=== PATIENT | male | born 1955 | race Caucasian/White ===

== ENCOUNTER → 2016-11-03 | Outpatient (CLI) | payer MEDICARE ==
[2016-11-03 16:27] LABS: Blood Urea Nitrogen 17 mg/dL (9-20); Non-African American GFR(MDRD) >60 (>60 ml/min/1.73 sqM)
--- NOTE | 2016-11-03 18:05 | CT ---
EXAMINATION TYPE: CT angio head neck DATE OF EXAM: 11/03/2016 5:35 PM COMPARISON: NONE HISTORY: headache, TIA symptoms CT DLP: 2807.4 total mGycm Automated exposure control for dose reduction was used. TECHNIQUE: Performed with IV Contrast, patient injected with 65 mL of Omnipaque 350. There are 3-D post processed images.. FINDINGS: The noncontrast images show fairly normal ventricles and sulci. There is no mass effect nor midline s hift. There is no sign of intracranial hemorrhage. There is normal branching pattern of the great vessels on the aortic arch. There is bilateral arteria l flow in the vertebral arteries. There is patency of the common internal and external carotid arteri es. There is mild plaque at the carotid artery bifurcations but no significant narrowing of the lumen . There is narrowing at the origin of the left common carotid artery. There is arterial flow in the vertebrobasilar artery system. Basilar artery fills mostly from the lef t side. There is arterial flow in the anterior middle and posterior cerebral arteries. There is no sign of an eurysm or neovascularity. I see no sign of hemodynamically significant stenosis. There is normal cont rast opacification of the venous sinuses. There is bilateral patency of the posterior communicating a rteries. IMPRESSION: NEGATIVE CT ANGIOGRAM OF THE BRAIN. MINIMAL CALCIFICATION AT THE CAROTID ARTERY BIFURCATIONS WITH NARROWING OF LESS THAN 10% OF THE INTER NAL CAROTID ARTERIES. THERE IS APPROXIMATE 50% NARROWING AT THE ORIGIN OF THE LEFT COMMON CAROTID ART CARMENZA ON THE AORTIC ARCH.
== END ==
LOC: RADCTMAIN 15:53
PROVIDERS: ATTEND Psychiatry & Neurology Neurology
DX: I65.22 Occlusion and stenosis of left carotid artery (principal); G45.9 Transient cerebral ischemic attack, unspecified
CPT/HCPCS: 82565; 84520; 70496; 70498; 36415; Q9967

== ENCOUNTER 2017-02-02 19:50 | Inpatient (IN) | payer MEDICARE ==
[2017-02-02 20:01] LABS: Glucose,Whole Blood 101 mg/dL (75-99)
[2017-02-02] MEDS ORDERED: SODIUM CHLORIDE 0.9% 1,000 ML IV STA ×2 (20:14)
[2017-02-02] MEDS ORDERED: ACETAMINOPHEN TAB 500 MG TAB PO STA (20:14)
[2017-02-02] MEDS ORDERED: KETOROLAC 30 MG/ML 1 ML VIAL IVP STA (20:15)
[2017-02-02] MEDS ORDERED: LEVOFLOXACIN 750MG-D5W PMX 750 MG in DEXTROSE/WATER 1 150ML.BAG IVPB STA (20:15)
[2017-02-02] MEDS ORDERED: IPRATROPIUM-ALBUTEROL 3 ML NEB INHALATION STA (20:16)
[2017-02-02] MEDS ORDERED: ONDANSETRON 4 MG/2 ML VIAL IVP STA (20:16)
[2017-02-02 20:31] LABS: Anisocytosis Slight; Basophils # (A) 0.1 k/uL (0-0.2); Basophils % (A) 1 %; CH 34.1; Eosinophils % (A) 0 %; HCT 30.2 % (39.0-53.0); HDW 3.06; HGB 10.3 gm/dL (13.0-17.5); Luc # (Auto) 0.45; Luc % (Auto) 4; Lymphocytes # (A) 0.7 k/uL (1.0-4.8); Lymphocytes % (A) 6 %; MCH 33.3 pg (25.0-35.0); MCHC 34.2 g/dL (31.0-37.0); MCV 97.5 fL (80.0-100.0); Monocytes # (A) 1.1 k/uL (0-1.0); Monocytes % (A) 9 %; Neutrophils # (A) 9.8 k/uL (1.3-7.7); Neutrophils % (A) 81 %; RBC 3.09 m/uL (4.30-5.90); RDW 18.2 % (11.5-15.5); WBC (Perox) 12.04
[2017-02-02 20:44] LABS: ALT 31 U/L (21-72); AST 26 U/L (17-59); Alkaline Phosphatase 56 U/L (38-126); Amylase <30 U/L (30-110); Anion Gap 9 mmol/L; Blood Urea Nitrogen 17 mg/dL (9-20); Calcium 8.5 mg/dL (8.4-10.2); Carbon Dioxide 23 mmol/L (22-30); Chloride 101 mmol/L (98-107); Glucose 92 mg/dL (74-99); Non-African American GFR(MDRD) >60 (>60 ml/min/1.73 sqM); Potassium 3.7 mmol/L (3.5-5.1); Sodium 133 mmol/L (137-145); Total Bilirubin 0.3 mg/dL (0.2-1.3)
[2017-02-02 20:48] LABS: Appearance,Urine Clear (Clear); Bilirubin,Urine Negative (Negative); Glucose,Urine (UA) Negative (Negative); Ketones,Urine Negative (Negative); Leukocyte Esterase,Urine Negative (Negative); Mucus,Urine Rare /hpf; Nitrite,Urine Negative (Negative); Particle Count 4126; Protein,Urine 3+ (Negative); RBC,Urine 20 /hpf (0-5); Specific Gravity,Urine 1.023 (1.001-1.035); UA Billing (MACRO vs. MICRO) MICRO; WBC,Urine 1 /hpf (0-5)
[2017-02-02] MEDS ORDERED: PNEUMONIA PROTOCOL UTILIZED 1 EACH MISC PO PRN (21:23)
[2017-02-02] MEDS ORDERED: IPRATROPIUM-ALBUTEROL 3 ML NEB INHALATION PRN ×2 (21:23→23:52)
[2017-02-02] MEDS ORDERED: PIPERACILLIN-TAZOBACTAM 3.375 GM in DEXTROSE/WATER 1 50ML.BAG IVPB STA (21:23)
--- NOTE | 2017-02-02 21:23 | ED ---
Fever HPI - General Chief Complaint: Fever Stated Complaint: low sugar Time Seen by Provider: 02/02/17 20:06 Source: patient, family Mode of arrival: wheelchair Limitations: no limitations - History of Present Illness Initial Comments: This 61-year-old white male presents with the complaint of a fever. This is been going on for the past 3 days. He has felt very weak and has had myalgias. His temperature in the ER as 104. He's had a cough without production. He has felt short of breath at times as well. He has had some nausea. He is a diabetic and his blood sugars have fluctuated significantly and he was hypoglycemic earlier. He also complains of some pain in his midepigastric region of his abdomen. He has had decreased oral intake. - Related Data Home Medications Medication Instructions Recorded Confirmed Aspirin EC [Ecotrin Low Dose] 81 mg PO DAILY 02/04/16 02/02/17 Butalb/Acetaminophen/Caffeine 1 tab PO BID PRN 02/04/16 02/02/17 [[id number] 50-325-40] Clopidogrel Bisulfate [Clopidogrel] 75 mg PO DAILY 02/04/16 02/02/17 Gabapentin [Gabapentin] 800 mg PO TID 02/04/16 02/02/17 Insulin Detemir [Levemir Flextouch] 30 units SQ DAILY@1700 02/04/16 02/02/17 Metoprolol Succinate [Toprol XL] 25 mg PO BID 02/04/16 02/02/17 Pioglitazone HCl [Pioglitazone HCl] 45 mg PO DAILY 02/04/16 02/02/17 Simvastatin [Zocor] 40 mg PO HS 02/04/16 02/02/17 glyBURIDE/METFORMIN HCL 1 tab PO BID 02/04/16 02/02/17 [glyBURIDE/METFORMIN HCL 5-500 mg] oxyCODONE-APAP 10-325MG [Percocet 1 tab PO TID PRN 02/04/16 02/02/17 10-325 mg] Cyclobenzaprine [Flexeril] 10 mg PO TID 02/02/17 02/02/17 Vitamin D3(Unknown Dose) 1 tab PO BID 02/02/17 02/02/17 Allergies Allergy/AdvReac Type Severity Reaction Status Date / Time codeine AdvReac Nausea & Verified 02/02/17 20:25 Vomiting Review of Systems ROS Statement: Those systems with pertinent positive or pertinent negative responses have been documented in the HPI. ROS Other: All systems not noted in ROS Statement are negative. Past Medical History Past Medical History: CVA/TIA, Diabetes Mellitus, Hyperlipidemia, Hypertension, Myocardial Infarction ([place]) Additional Past Medical History / Comment(s): back and neck pain History of Any Multi-Drug Resistant Organisms: None Reported Past Surgical History: Heart Catheterization With Stent, Orthopedic Surgery Past Psychological History: No Psychological Hx Reported Smoking Status: Current every day smoker Past Alcohol Use History: None Reported Past Drug Use History: None Reported General Exam - General Exam Comments Initial Comments: GENERAL: The patient is well nourished and mildly dehydrated. VITAL SIGNS: Heart rate, blood pressure, respiratory rate reviewed as recorded in nurse's notes. EYES: Pupils are round and reactive. Extraocular movements are intact. No conjunctival / lid redness or swelling. ENT: No external evidence of injury, swelling, or ecchymosis. Airway is patent. Throat is clear. NECK: Nontender. No swelling or evidence of injury. No subcutaneous emphysema. Trachea is midline. No thyroid mass. HEART: Regular rate and rhythm. Good peripheral pulses. LUNGS/CHEST: There is occasional rhonchi bilaterally. No ecchymosis, subcutaneous emphysema, or tenderness. ABDOMEN: Abdomen soft without tenderness. No palpable masses or organomegaly. No peritoneal signs. No abdominal wall swelling or ecchymosis. EXTREMITIES: No extremity tenderness. Normal muscle tone and function. No thoracolumbar tenderness. NEUROLOGIC: Sensation is grossly intact. Cranial nerve exam reveals face is symmetrical, tongue is midline, speech is clear. SKIN: No abrasions or ecchymosis is noted. No induration or masses noted. PSYCHIATRIC: Alert and oriented. Appropriate behavior and judgment. Limitations: no limitations Course Vital Signs 02/02/17 02/02/17 02/02/17 19:51 20:46 20:52 Temperature 104.6 F H Pulse Rate 108 H 123 H 91 Respiratory 22 18 Rate Blood Pressure 139/59 157/66 O2 Sat by Pulse 91 L 99 Oximetry 02/02/17 21:05 Temperature Pulse Rate 100 Respiratory Rate Blood Pressure O2 Sat by Pulse Oximetry Medical Decision Making - Medical Decision Making The patient was seen and examined. All diagnostics were reviewed. EKG shows a normal sinus rhythm at a rate of 97. No acute ST-T wave changes noted. The MD interval is 160, QRS duration is 96, and QTc interval is 406. The patient's pulse ox is low at 88%. He receives a DuoNeb breathing treatment. Antibiotics are started. He receives Toradol and Tylenol for his fever. Further care will be passed off to oncoming shift. His white blood cell count is slightly elevated. His hemoglobin is slightly low as well. Remainder of labs are reviewed. The acute abdominal series does not show any acute processes. The chest x-ray shows a likely infiltrate in the bilateral upper lobes and left lower lobe. Is felt that he does have community-acquired pneumonia and will be admitted. Case will be discussed with internal medicine shortly. - Lab Data Result diagrams: 02/02/17 20:10 02/02/17 20:10 Lab Results 02/02/17 02/02/17 02/02/17 Range/Units 20:00 20:10 20:10 WBC 12.0 H (3.8-10.6) k/uL RBC 3.09 L (4.30-5.90) m/uL Hgb 10.3 L (13.0-17.5) gm/dL Hct 30.2 L (39.0-53.0) % MCV 97.5 (80.0-100.0) fL MCH 33.3 (25.0-35.0) pg MCHC 34.2 (31.0-37.0) g/dL RDW 18.2 H (11.5-15.5) % Plt Count 221 (150-450) k/uL Neutrophils % 81 % Lymphocytes % 6 % Monocytes % 9 % Eosinophils % 0 % Basophils % 1 % Neutrophils # 9.8 H (1.3-7.7) k/uL Lymphocytes # 0.7 L (1.0-4.8) k/uL Monocytes # 1.1 H (0-1.0) k/uL Eosinophils # 0.0 (0-0.7) k/uL Basophils # 0.1 (0-0.2) k/uL Anisocytosis Slight Sodium 133 L (137-145) mmol/L Potassium 3.7 (3.5-5.1) mmol/L Chloride 101 (98-107) mmol/L Carbon Dioxide 23 (22-30) mmol/L Anion Gap 9 mmol/L BUN 17 (9-20) mg/dL Creatinine 0.90 (0.66-1.25) mg/dL Est GFR (MDRD) Af Amer >60 (>60 ml/min/1.73 sqM) Est GFR (MDRD) Non-Af >60 (>60 ml/min/1.73 sqM) Glucose 92 (74-99) mg/dL POC Glucose (mg/dL) 101 H (75-99) mg/dL POC Glu Molding Technician ID Katerin Jordan Plasma Lactic Acid Dann (0.7-2.0) mmol/L Calcium 8.5 (8.4-10.2) mg/dL Total Bilirubin 0.3 (0.2-1.3) mg/dL AST 26 (17-59) U/L ALT 31 (21-72) U/L Alkaline Phosphatase 56 (38-126) U/L Total Protein 6.0 L (6.3-8.2) g/dL Albumin 3.5 (3.5-5.0) g/dL Amylase <30 L (30-110) U/L Lipase <10 L (23-300) U/L Urine Color Urine Appearance (Clear) Urine pH (5.0-8.0) Ur Specific [place] (1.001-1.035) Urine Protein (Negative) Urine Glucose (UA) (Negative) Urine Ketones (Negative) Urine Blood (Negative) Urine Nitrite (Negative) Urine Bilirubin (Negative) Urine Urobilinogen (<2.0) mg/dL Ur Leukocyte Esterase (Negative) Urine RBC (0-5) /hpf Urine WBC (0-5) /hpf Urine Mucus (None) /hpf 02/02/17 02/02/17 Range/Units 20:10 20:25 WBC (3.8-10.6) k/uL RBC (4.30-5.90) m/uL Hgb (13.0-17.5) gm/dL Hct (39.0-53.0) % MCV (80.0-100.0) fL MCH (25.0-35.0) pg MCHC (31.0-37.0) g/dL RDW (11.5-15.5) % Plt Count (150-450) k/uL Neutrophils % % Lymphocytes % % Monocytes % % Eosinophils % % Basophils % % Neutrophils # (1.3-7.7) k/uL Lymphocytes # (1.0-4.8) k/uL Monocytes # (0-1.0) k/uL Eosinophils # (0-0.7) k/uL Basophils # (0-0.2) k/uL Anisocytosis Sodium (137-145) mmol/L Potassium (3.5-5.1) mmol/L Chloride (98-107) mmol/L Carbon Dioxide (22-30) mmol/L Anion Gap mmol/L BUN (9-20) mg/dL Creatinine (0.66-1.25) mg/dL Est GFR (MDRD) Af Amer (>60 ml/min/1.73 sqM) Est GFR (MDRD) Non-Af (>60 ml/min/1.73 sqM) Glucose (74-99) mg/dL POC Glucose (mg/dL) (75-99) mg/dL POC Glu Molding Technician ID Plasma Lactic Acid Dann 1.4 (0.7-2.0) mmol/L Calcium (8.4-10.2) mg/dL Total Bilirubin (0.2-1.3) mg/dL AST (17-59) U/L ALT (21-72) U/L Alkaline Phosphatase (38-126) U/L Total Protein (6.3-8.2) g/dL Albumin (3.5-5.0) g/dL Amylase (30-110) U/L Lipase (23-300) U/L Urine Color Yellow Urine Appearance Clear (Clear) Urine pH 6.0 (5.0-8.0) Ur Specific [place] 1.023 (1.001-1.035) Urine Protein 3+ H (Negative) Urine Glucose (UA) Negative (Negative) Urine Ketones Negative (Negative) Urine Blood Moderate H (Negative) Urine Nitrite Negative (Negative) Urine Bilirubin Negative (Negative) Urine Urobilinogen 2.0 (<2.0) mg/dL Ur Leukocyte Esterase Negative (Negative) Urine RBC 20 H (0-5) /hpf Urine WBC 1 (0-5) /hpf Urine Mucus Rare H (None) /hpf Disposition Clinical Impression: Hyperpyrexia, Community acquired pneumonia, Anemia, Abdominal pain, Weakness, Acute respiratory failure Disposition: ADMITTED IP TO THIS HOSP Condition: Fair Referrals: Vickie Lozano MD [Primary Care Provider] - 1-2 days Time of Disposition: 21:28 Decision Date: 02/02/17 Decision Time: 21:28
--- NOTE | 2017-02-02 21:29 | XR ---
EXAMINATION TYPE: XR chest 2V DATE OF EXAM: 02/02/2017 COMPARISON: 08/11/2009 HISTORY: Dizziness TECHNIQUE: Frontal and lateral views of the chest are obtained. FINDINGS: There is suggestion of a new infiltrate above the left pulmonary hilum compared to last exa m. There is poor inspiration. There is no pleural effusion. There is no heart failure. IMPRESSION: Probable new left upper lobe infiltrate compared to old exam. No heart failure.
[2017-02-02] MEDS ORDERED: METOCLOPRAMIDE 5 MG/ML 2 ML VIAL IVP STA (21:30)
--- NOTE | 2017-02-02 21:30 | XR ---
EXAMINATION TYPE: XR abdomen 2V DATE OF EXAM: 02/02/2017 COMPARISON: NONE HISTORY: Dizziness TECHNIQUE: 3 views FINDINGS: There is no sign of intestinal obstruction or pneumoperitoneum. Fecal pattern is normal. Th ere is no sign of a mass. There are no pathologic calcifications over the kidneys. There is mild subs egmental atelectasis at the left lung base. IMPRESSION: Subsegmental atelectasis. Nonacute abdomen.
[2017-02-02] MEDS ORDERED: HYDROmorphone 1 MG/ML 1 ML SYRINGE IVP PRN (21:31)
[2017-02-02 22:34] LABS: Glucose,Whole Blood 183 mg/dL (75-99)
[2017-02-02] MEDS ORDERED: INSULIN DETEMIR 100 UNIT/ML 10 ML VIAL SQ SCH (23:48)
[2017-02-03] MEDS: oxyCODONE-APAP 10-325MG 1 EACH TAB PO PRN ×3 (01:06→21:40)
[2017-02-03] MEDS: metFORMIN 500 MG TAB PO SCH ×2 (01:06→08:14)
[2017-02-03] MEDS: CYCLOBENZAPRINE 10 MG TAB PO SCH ×4 (01:06→21:36)
[2017-02-03] MEDS: GABAPENTIN 400 MG CAP PO SCH ×4 (01:06→21:36)
[2017-02-03] MEDS: METOPROLOL TARTRATE 25 MG TAB PO SCH ×3 (01:06→21:36)
[2017-02-03] MEDS: ATORVASTATIN 20 MG TAB PO SCH ×2 (01:06→21:36)
[2017-02-03] MEDS: CHOLECALCIFEROL 400 UNIT TAB PO SCH ×3 (01:06→21:36)
[2017-02-03] MEDS: IPRATROPIUM-ALBUTEROL 3 ML NEB INHALATION SCH ×4 (07:21→19:39)
[2017-02-03 07:29] LABS: Glucose,Whole Blood 60 mg/dL (75-99)
[2017-02-03] MEDS ORDERED: PIPERACILLIN-TAZOBACTAM 3.375 GM in DEXTROSE/WATER 1 50ML.BAG IVPB SCH (08:00)
[2017-02-03 08:01] LABS: Glucose,Whole Blood 61 mg/dL (75-99)
[2017-02-03 08:15] LABS: Glucose,Whole Blood 76 mg/dL (75-99)
[2017-02-03] MEDS: CLOPIDOGREL 75 MG TAB PO SCH (08:15)
[2017-02-03] MEDS: ASPIRIN 81 MG CHEW PO SCH (08:15)
[2017-02-03] MEDS: INSULIN LISPRO (humaLOG) 300 UNIT/3 ML VIAL SQ SCH ×4 (08:15→21:17)
[2017-02-03] MEDS ORDERED: glipiZIDE 5 MG TAB PO SCH (09:00)
[2017-02-03] MEDS ORDERED: PIOGLITAZONE 45 MG TAB PO SCH (09:00)
[2017-02-03] MEDS ORDERED: POLYETHYLENE GLYCOL 3350 17 GM POWD.PACK PO PRN (11:16)
--- NOTE | 2017-02-03 11:19 | P.HPIM ---
History of Present Illness This 61-year-old male presents with the complaint of a fever cough unable to bring up anything generalized weakness for the past 3 days. He has felt very weak and has had myalgias. His temperature in the ER as 104. He's had a cough without production. He has felt short of breath at times as well along with nausea and vomiting. He has had decreased oral intake. Patient is found to have right upper lobe pneumonia, patient was started on Zosyn and levofloxacin which were dyspnea and patient was started on Ceftin and azithromycin as there is no need for healthcare associated pneumonia treatment. Patient has come in today quite pneumonia. Patient is a smoker Review of Systems REVIEW OF SYSTEMS: CONSTITUTIONAL: No fever, no malaise, no fatigue. HEENT: No recent visual problems or hearing problems. Denied any sore throat. CARDIOVASCULAR: No chest pain, orthopnea, PND, no palpitations, no syncope. PULMONARY:, no hemoptysis. GASTROINTESTINAL: No diarrhea no abdominal pain. Normoactive bowel sounds. NEUROLOGICAL: No headaches, no weakness, no numbness. HEMATOLOGICAL: Denies any bleeding or petechiae. GENITOURINARY: Denies any burning micturition, frequency, or urgency. MUSCULOSKELETAL/RHEUMATOLOGICAL: Denies any joint pain, swelling, or any muscle pain. ENDOCRINE: Denies any polyuria or polydipsia. The rest of the 14-point review of systems is negative. Past Medical History Past Medical History: CVA/TIA, Diabetes Mellitus, Hyperlipidemia, Hypertension, Myocardial Infarction ([place]) Additional Past Medical History / Comment(s): chronic bronchitis; back and neck pain Last Myocardial Infarction Date:: 2009 History of Any Multi-Drug Resistant Organisms: None Reported Past Surgical History: Heart Catheterization With Stent, Hernia Repair, Orthopedic Surgery Additional Past Surgical History / Comment(s): abdominal superior vena cava stent; right rotor cuff sx; left knee sx; oleg wrist sx; left ankle sx; ingunial hernia repair Date of Last Stent Placement:: 2011 Past Psychological History: No Psychological Hx Reported Smoking Status: Current every day smoker Past Alcohol Use History: None Reported Past Drug Use History: None Reported - Past Family History Son(s) Family Medical History: Hyperlipidemia, Hypertension Additional Family Medical History / Comment(s): bad back; Daughter(s) Family Medical History: Diabetes Mellitus Additional Family Medical History / Comment(s): ddd-lumbar; scolosis; spina bifada Medications and Allergies Home Medications Medication Instructions Recorded Confirmed Type Aspirin EC [Ecotrin Low Dose] 81 mg PO DAILY 02/04/16 02/02/17 History Butalb/Acetaminophen/Caffeine 1 tab PO BID PRN 02/04/16 02/02/17 History [[id number] 50-325-40] Clopidogrel Bisulfate [Clopidogrel] 75 mg PO DAILY 02/04/16 02/02/17 History Gabapentin [Gabapentin] 800 mg PO TID 02/04/16 02/02/17 History Insulin Detemir [Levemir Flextouch] 24 units SQ DAILY@1700 02/04/16 02/02/17 History Metoprolol Succinate [Toprol XL] 25 mg PO BID 02/04/16 02/02/17 History Pioglitazone HCl [Pioglitazone HCl] 45 mg PO DAILY 02/04/16 02/02/17 History Simvastatin [Zocor] 40 mg PO HS 02/04/16 02/02/17 History glyBURIDE/METFORMIN HCL 1 tab PO BID 02/04/16 02/02/17 History [glyBURIDE/METFORMIN HCL 5-500 mg] oxyCODONE-APAP 10-325MG [Percocet 1 tab PO TID PRN 02/04/16 02/02/17 History 10-325 mg] Cyclobenzaprine [Flexeril] 10 mg PO TID 02/02/17 02/02/17 History Vitamin D3(Unknown Dose) 1 tab PO BID 02/02/17 02/02/17 History Allergies Allergy/AdvReac Type Severity Reaction Status Date / Time codeine AdvReac Nausea & Verified 02/02/17 20:25 Vomiting Physical Exam Vitals: Vital Signs Temp Pulse Pulse Resp BP BP Pulse Ox 02/03/17 07:37 100 02/03/17 07:24 96 17 02/03/17 07:00 99.6 F 102 H 16 168/69 96 02/02/17 22:20 99.0 F 98 17 132/60 92 L 02/02/17 22:08 101.6 F H 95 18 140/63 98 02/02/17 21:31 102.8 F H 104 H 18 128/57 96 02/02/17 21:05 100 02/02/17 20:52 91 18 157/66 99 02/02/17 20:46 123 H 02/02/17 19:51 104.6 F H 108 H 22 139/59 91 L Intake and Output 02/02/17 02/03/17 02/03/17 22:59 06:59 14:59 Intake Total 1000 Balance 1000 Intake: Amount of Fluid Infused ( 1000 ml) Other: Voiding Method Toilet Toilet Weight 95 kg PHYSICAL EXAMINATION: GENERAL: The patient is alert and oriented x3, not in any acute distress. Well developed, well nourished. HEENT: Pupils are round and equally reacting to light. EOMI. No scleral icterus. No conjunctival pallor. Normocephalic, atraumatic. No pharyngeal erythema. No thyromegaly. CARDIOVASCULAR: S1 and S2 present. No murmurs, rubs, or gallops. PULMONARY: Chest is clear to auscultation, no wheezing or crackles. Does have bronchophony and egophony in the right upper lobes and patient does have decreased breath sounds bilaterally. ABDOMEN: Soft, nontender, nondistended, normoactive bowel sounds. No palpable organomegaly. MUSCULOSKELETAL: No joint swelling or deformity. EXTREMITIES: No cyanosis, clubbing, or pedal edema. NEUROLOGICAL: Gross neurological examination did not reveal any focal deficits. SKIN: No rashes. Results CBC & Chem 7: 02/02/17 20:10 02/02/17 20:10 Labs: Abnormal Lab Results - Last 24 Hours (Table) 02/02/17 02/02/17 02/02/17 Range/Units 20:00 20:10 20:10 WBC 12.0 H (3.8-10.6) k/uL RBC 3.09 L (4.30-5.90) m/uL Hgb 10.3 L (13.0-17.5) gm/dL Hct 30.2 L (39.0-53.0) % RDW 18.2 H (11.5-15.5) % Neutrophils # 9.8 H (1.3-7.7) k/uL Lymphocytes # 0.7 L (1.0-4.8) k/uL Monocytes # 1.1 H (0-1.0) k/uL Sodium 133 L (137-145) mmol/L POC Glucose (mg/dL) 101 H (75-99) mg/dL Total Protein 6.0 L (6.3-8.2) g/dL Amylase <30 L (30-110) U/L Lipase <10 L (23-300) U/L Urine Protein (Negative) Urine Blood (Negative) Urine RBC (0-5) /hpf Urine Mucus (None) /hpf 02/02/17 02/02/17 02/03/17 Range/Units 20:25 22:22 07:23 WBC (3.8-10.6) k/uL RBC (4.30-5.90) m/uL Hgb (13.0-17.5) gm/dL Hct (39.0-53.0) % RDW (11.5-15.5) % Neutrophils # (1.3-7.7) k/uL Lymphocytes # (1.0-4.8) k/uL Monocytes # (0-1.0) k/uL Sodium (137-145) mmol/L POC Glucose (mg/dL) 183 H 60 L (75-99) mg/dL Total Protein (6.3-8.2) g/dL Amylase (30-110) U/L Lipase (23-300) U/L Urine Protein 3+ H (Negative) Urine Blood Moderate H (Negative) Urine RBC 20 H (0-5) /hpf Urine Mucus Rare H (None) /hpf 02/03/17 Range/Units 07:41 WBC (3.8-10.6) k/uL RBC (4.30-5.90) m/uL Hgb (13.0-17.5) gm/dL Hct (39.0-53.0) % RDW (11.5-15.5) % Neutrophils # (1.3-7.7) k/uL Lymphocytes # (1.0-4.8) k/uL Monocytes # (0-1.0) k/uL Sodium (137-145) mmol/L POC Glucose (mg/dL) 61 L (75-99) mg/dL Total Protein (6.3-8.2) g/dL Amylase (30-110) U/L Lipase (23-300) U/L Urine Protein (Negative) Urine Blood (Negative) Urine RBC (0-5) /hpf Urine Mucus (None) /hpf Microbiology - Last 24 Hours (Table) 02/02/17 20:25 Urine Culture - Preliminary Urine,Voided Thrombosis Risk Factor Assmnt - Choose All That Apply Any of the Below Risk Factors Present?: Yes Each Factor Represents 1 point: Age 41-60 years, Obesity (BMI >25) Other Risk Factors: No Other congenital or acquired thrombophilia - If yes, enter type in comment: No Thrombosis Risk Factor Assessment Total Risk Factor Score: 2 Thrombosis Risk Factor Assessment Level: Low Risk Assessment and Plan Plan: 1 sepsis secondary to come in today quite pneumonia most probably pneumococcal pneumonia: Patient will be started on Rocephin and azithromycin. Sputum cultures and blood cultures will be obtained. 2 hypovolemic hyponatremia: Expected to improve with IV fluids. #3 type 2 diabetes mellitus: Continue his home regimen monitor blood sugars titration as per the blood sugars. #4 hypertension #5 hyperlipidemia #6 coronary artery disease #7 cerebrovascular accident in the past For above-mentioned chronic medical problems or go ahead and continue his home medications. Repeat Avapro lites and CBC tomorrow.
[2017-02-03 11:35] LABS: Glucose,Whole Blood 52 mg/dL (75-99)
[2017-02-03 11:50] LABS: Glucose,Whole Blood 44 mg/dL (75-99)
[2017-02-03 11:52] LABS: Glucose,Whole Blood 42 mg/dL (75-99)
[2017-02-03] MEDS: HEPARIN SODIUM,PORCINE 5,000 UNIT/ML 1 ML VIAL SQ SCH ×3 (11:52→23:35)
[2017-02-03] MEDS: cefTRIAXone 2,000 MG in SODIUM CHLORIDE 0.9% 100 ML IVPB SCH (11:53)
[2017-02-03] MEDS: AZITHROMYCIN 500 MG TAB PO SCH (11:53)
[2017-02-03 12:14] LABS: Hemoglobin A1C 6.4 % (4.2-6.1)
[2017-02-03 12:22] LABS: Glucose,Whole Blood 51 mg/dL (75-99)
[2017-02-03 12:27] LABS: Glucose,Whole Blood 81 mg/dL (75-99)
--- NOTE | 2017-02-03 13:51 | XR ---
EXAMINATION TYPE: XR chest 2V DATE OF EXAM: 02/03/2017 COMPARISON: 02/02/2017 INDICATION: Pneumonia TECHNIQUE: Frontal and lateral views of the chest are obtained. FINDINGS: The heart size is normal. The pulmonary vasculature is normal. Small infiltrate is in the left suprahilar region above the level of the aortic arch. This may be gabriele ewhat projectional with a change from prior study. Atelectasis should be considered. IMPRESSION: 1. Persistent left upper lobe infiltrate. Correlate for pneumonia and atelectasis.
[2017-02-03] MEDS: ACETAMINOPHEN TAB 500 MG TAB PO PRN (14:55)
[2017-02-03] MEDS: DEXTROSE 5%-0.9% NACL 1,000 ML IV SCH (15:30)
[2017-02-03] MEDS: ONDANSETRON 4 MG/2 ML VIAL IVP PRN (15:36)
[2017-02-03 15:49] LABS: Glucose,Whole Blood 47 mg/dL (75-99)
[2017-02-03 16:26] LABS: Glucose,Whole Blood 64 mg/dL (75-99)
[2017-02-03 16:26] LABS: Glucose,Whole Blood 69 mg/dL (75-99)
[2017-02-03 17:09] LABS: Glucose,Whole Blood 85 mg/dL (75-99)
[2017-02-03 20:50] LABS: Glucose,Whole Blood 91 mg/dL (75-99)
[2017-02-03] MEDS ORDERED: LEVOFLOXACIN 750MG-D5W PMX 750 MG in DEXTROSE/WATER 1 150ML.BAG IVPB SCH (21:00)
[2017-02-03] MEDS: FAMOTIDINE 20 MG TAB PO SCH (21:36)
[2017-02-04 02:17] LABS: Glucose,Whole Blood 114 mg/dL (75-99)
[2017-02-04] MEDS: DEXTROSE 5%-0.9% NACL 1,000 ML IV SCH ×3 (04:14→23:28)
[2017-02-04 07:41] LABS: Glucose,Whole Blood 163 mg/dL (75-99)
[2017-02-04] MEDS: ONDANSETRON 4 MG/2 ML VIAL IVP PRN (07:43)
[2017-02-04 07:51] LABS: Anisocytosis Slight; CH 33.6; CHCM 33.8; HCT 26.5 % (39.0-53.0); HDW 3.08; HGB 8.9 gm/dL (13.0-17.5); MCH 33.3 pg (25.0-35.0); MCHC 33.5 g/dL (31.0-37.0); MCV 99.4 fL (80.0-100.0); Macrocytosis Slight; Mean Platelet Volume 8.9; RBC 2.66 m/uL (4.30-5.90); RDW 17.7 % (11.5-15.5); WBC 11.2 k/uL (3.8-10.6)
[2017-02-04] MEDS: HEPARIN SODIUM,PORCINE 5,000 UNIT/ML 1 ML VIAL SQ SCH ×3 (07:53→23:27)
[2017-02-04] MEDS: GABAPENTIN 400 MG CAP PO SCH ×3 (07:55→21:09)
[2017-02-04] MEDS: FAMOTIDINE 20 MG TAB PO SCH ×2 (07:56→21:09)
[2017-02-04] MEDS: AZITHROMYCIN 500 MG TAB PO SCH (07:56)
[2017-02-04] MEDS: CYCLOBENZAPRINE 10 MG TAB PO SCH ×3 (07:56→21:09)
[2017-02-04] MEDS: CLOPIDOGREL 75 MG TAB PO SCH (07:57)
[2017-02-04] MEDS: METOPROLOL TARTRATE 25 MG TAB PO SCH ×2 (07:57→21:09)
[2017-02-04] MEDS: ASPIRIN 81 MG CHEW PO SCH (07:57)
[2017-02-04] MEDS: CHOLECALCIFEROL 400 UNIT TAB PO SCH ×2 (07:58→21:09)
[2017-02-04] MEDS: oxyCODONE-APAP 10-325MG 1 EACH TAB PO PRN (08:02)
[2017-02-04] MEDS: INSULIN LISPRO (humaLOG) 300 UNIT/3 ML VIAL SQ SCH ×4 (08:05→21:10)
[2017-02-04 08:06] LABS: Anion Gap 4 mmol/L; Blood Urea Nitrogen 8 mg/dL (9-20); Carbon Dioxide 26 mmol/L (22-30); Chloride 104 mmol/L (98-107); Glucose 140 mg/dL (74-99); Non-African American GFR(MDRD) >60 (>60 ml/min/1.73 sqM); Potassium 4.2 mmol/L (3.5-5.1); Sodium 134 mmol/L (137-145)
[2017-02-04] MEDS: IPRATROPIUM-ALBUTEROL 3 ML NEB INHALATION SCH ×4 (08:46→20:33)
--- NOTE | 2017-02-04 12:17 | P.PN ---
Subjective 61-year-old male admitted for possible right upper lobe pneumonia, patient has left toe cellulitis, which looks was then as today because of which I'm adding vancomycin and infectious disease will be consulted. Patient denied any shortness of breath today, denied any fever, abdominal pain, nausea, dysuria. Objective - Vital Signs Vital signs: Vital Signs Temp 99.2 F 02/04/17 07:00 Pulse 92 02/04/17 11:56 Resp 20 02/04/17 07:00 BP 175/77 02/04/17 07:00 Pulse Ox 96 02/04/17 07:00 Intake & Output 02/03/17 02/04/17 02/04/17 18:59 06:59 18:59 Intake Total 680 1150 Output Total 500 3575 Balance 180 -2425 Intake: Intake, IV Titration 1150 Amount Dextrose 5%-0.9% NaCl 1, 1150 000 ml @ 100 mls/hr IV . Q10H CLAUDIA Rx#:[id number] Oral 680 Output: Urine 500 3575 Other: Voiding Method Toilet Toilet Toilet Urinal Urinal - Exam PHYSICAL EXAMINATION: GENERAL: The patient is alert and oriented x3, not in any acute distress. Well developed, well nourished. HEENT: Pupils are round and equally reacting to light. EOMI. No scleral icterus. No conjunctival pallor. Normocephalic, atraumatic. No pharyngeal erythema. No thyromegaly. CARDIOVASCULAR: S1 and S2 present. No murmurs, rubs, or gallops. PULMONARY: Chest is clear to auscultation, no wheezing or crackles. Does have bronchophony and egophony in the right upper lobes and patient does have decreased breath sounds bilaterally. ABDOMEN: Soft, nontender, nondistended, normoactive bowel sounds. No palpable organomegaly. MUSCULOSKELETAL: No joint swelling or deformity. EXTREMITIES: No cyanosis, clubbing, or pedal edema. NEUROLOGICAL: Gross neurological examination did not reveal any focal deficits. SKIN: Patient has redness and cell light is of the left toe which is swollen with lymphangitic streaking extending up to the proximally to ankle area - Labs CBC & Chem 7: 02/04/17 07:24 02/04/17 07:24 Labs: Abnormal Lab Results - Last 24 Hours (Table) 02/02/17 02/03/1702/03/17 Range/Units 20:10 12:01 15:39 WBC (3.8-10.6) k/uL RBC (4.30-5.90) m/uL Hgb (13.0-17.5) gm/dL Hct (39.0-53.0) % RDW (11.5-15.5) % Sodium (137-145) mmol/L BUN (9-20) mg/dL Glucose (74-99) mg/dL POC Glucose (mg/dL) 51 L 47 L (75-99) mg/dL Hemoglobin A1c 6.4 H (4.2-6.1) % Calcium (8.4-10.2) mg/dL 02/03/17 02/03/17 02/04/17 Range/Units 16:01 16:20 01:57 WBC (3.8-10.6) k/uL RBC (4.30-5.90) m/uL Hgb (13.0-17.5) gm/dL Hct (39.0-53.0) % RDW (11.5-15.5) % Sodium (137-145) mmol/L BUN (9-20) mg/dL Glucose (74-99) mg/dL POC Glucose (mg/dL) 64 L 69 L 114 H (75-99) mg/dL Hemoglobin A1c (4.2-6.1) % Calcium (8.4-10.2) mg/dL 02/04/17 02/04/17 02/04/17 Range/Units 07:24 07:24 07:39 WBC 11.2 H (3.8-10.6) k/uL RBC 2.66 L (4.30-5.90) m/uL Hgb 8.9 L (13.0-17.5) gm/dL Hct 26.5 L (39.0-53.0) % RDW 17.7 H (11.5-15.5) % Sodium 134 L (137-145) mmol/L BUN 8 L (9-20) mg/dL Glucose 140 H (74-99) mg/dL POC Glucose (mg/dL) 163 H (75-99) mg/dL Hemoglobin A1c (4.2-6.1) % Calcium 8.0 L (8.4-10.2) mg/dL Microbiology - Last 24 Hours (Table) 02/02/17 20:25 Urine Culture - Final Urine,Voided 02/02/17 20:10 Blood Culture - Preliminary Blood No Growth after 24 hours Assessment and Plan Plan: 1 sepsis secondary to come in today quite pneumonia most probably pneumococcal pneumonia: Patient will be started on Rocephin and azithromycin. Sputum cultures and blood cultures. Patient also has left toe cellulitis appears to have good pulses in the left ankle area. 2 hypovolemic hyponatremia: minimal with IV fluids. #3 type 2 diabetes mellitus: Continue his home regimen monitor blood sugars titration as per the blood sugars. Fairly controlled blood sugars today #4 hypertension #5 hyperlipidemia #6 coronary artery disease #7 cerebrovascular accident in the past For above-mentioned chronic medical problems or go ahead and continue his home medications. Repeat lites and CBC tomorrow.
[2017-02-04 12:23] LABS: Glucose,Whole Blood 187 mg/dL (75-99)
[2017-02-04] MEDS: cefTRIAXone 2,000 MG in SODIUM CHLORIDE 0.9% 100 ML IVPB SCH (12:48)
--- NOTE | 2017-02-04 15:10 | XR ---
EXAMINATION TYPE: XR foot complete LT DATE OF EXAM: 02/04/2017 COMPARISON: NONE HISTORY: Big toe pain TECHNIQUE: 3 views FINDINGS: There is mild spurring at the first MP joint. There is some spurring at the medial aspect o f the IP joint of the big toe with a 4 mm degenerative cyst in the medial base of the distal phalanx. I see no fracture. Metatarsals are intact. IMPRESSION: No fracture. Osteoarthritic changes. No sign of inflammatory arthritis.
[2017-02-04] MEDS: ceFAZolin 2 GM in SODIUM CHLORIDE 0.9% 100 ML IVPB SCH ×2 (16:24→23:27)
[2017-02-04] MEDS: ACETAMINOPHEN TAB 500 MG TAB PO PRN (17:52)
[2017-02-04 18:06] LABS: Glucose,Whole Blood 182 mg/dL (75-99)
[2017-02-04 21:00] LABS: Glucose,Whole Blood 252 mg/dL (75-99)
[2017-02-04] MEDS: ATORVASTATIN 20 MG TAB PO SCH (21:09)
[2017-02-05] MEDS: ACETAMINOPHEN TAB 500 MG TAB PO PRN (04:35)
[2017-02-05] MEDS ORDERED: VANCOMYCIN 1,500 MG in SODIUM CHLORIDE 0.9% 250 ML IVPB SCH (06:00)
[2017-02-05] MEDS: IPRATROPIUM-ALBUTEROL 3 ML NEB INHALATION SCH ×4 (07:40→20:23)
[2017-02-05 07:43] LABS: Glucose,Whole Blood 234 mg/dL (75-99)
[2017-02-05 09:18] LABS: Anisocytosis Slight; CHCM 32.8; HCT 25.9 % (39.0-53.0); HDW 3.12; HGB 8.7 gm/dL (13.0-17.5); MCH 33.8 pg (25.0-35.0); MCHC 33.6 g/dL (31.0-37.0); MCV 100.4 fL (80.0-100.0); Macrocytosis Slight; Mean Platelet Volume 9.1; RBC 2.58 m/uL (4.30-5.90); RDW 18.3 % (11.5-15.5); WBC 10.2 k/uL (3.8-10.6)
[2017-02-05 09:36] LABS: Anion Gap 7 mmol/L; Blood Urea Nitrogen 7 mg/dL (9-20); Calcium 8.4 mg/dL (8.4-10.2); Carbon Dioxide 25 mmol/L (22-30); Chloride 105 mmol/L (98-107); Glucose 233 mg/dL (74-99); Non-African American GFR(MDRD) >60 (>60 ml/min/1.73 sqM); Potassium 4.1 mmol/L (3.5-5.1); Sodium 137 mmol/L (137-145)
[2017-02-05] MEDS: HEPARIN SODIUM,PORCINE 5,000 UNIT/ML 1 ML VIAL SQ SCH ×3 (09:43→23:32)
[2017-02-05] MEDS: ceFAZolin 2 GM in SODIUM CHLORIDE 0.9% 100 ML IVPB SCH ×2 (09:46→17:55)
[2017-02-05] MEDS: INSULIN LISPRO (humaLOG) 300 UNIT/3 ML VIAL SQ SCH ×4 (09:47→21:45)
[2017-02-05] MEDS: oxyCODONE-APAP 10-325MG 1 EACH TAB PO PRN ×2 (09:54→18:40)
[2017-02-05] MEDS: CYCLOBENZAPRINE 10 MG TAB PO SCH ×3 (09:55→21:45)
[2017-02-05] MEDS: CHOLECALCIFEROL 400 UNIT TAB PO SCH ×2 (09:55→22:55)
[2017-02-05] MEDS: FAMOTIDINE 20 MG TAB PO SCH ×2 (09:56→21:45)
[2017-02-05] MEDS: GABAPENTIN 400 MG CAP PO SCH ×3 (09:56→22:55)
[2017-02-05] MEDS: CLOPIDOGREL 75 MG TAB PO SCH (09:56)
[2017-02-05] MEDS: METOPROLOL TARTRATE 25 MG TAB PO SCH ×2 (09:56→21:45)
[2017-02-05] MEDS: AZITHROMYCIN 500 MG TAB PO SCH (09:56)
[2017-02-05] MEDS: ASPIRIN 81 MG CHEW PO SCH (09:57)
[2017-02-05] MEDS: DEXTROSE 5%-0.9% NACL 1,000 ML IV SCH ×2 (09:58→12:40)
--- NOTE | 2017-02-05 10:37 | P.PN ---
Subjective 61-year-old male admitted for possible right upper lobe pneumonia, patient has left toe cellulitis, which looks was then as today because of which I'm adding vancomycin and infectious disease will be consulted. 02/05/2017 Patient was a valid by infectious disease. Believe the possibility of pneumonia is low and his infection is secondary to left toe cellulitis. Patient was changed to ceftezole. Patient denied any shortness of breath today, denied any fever, abdominal pain, nausea, dysuria. Objective - Vital Signs Vital signs: Vital Signs Temp 98.3 F 02/05/17 07:00 Pulse 90 02/05/17 07:50 Resp 20 02/05/17 07:00 BP 169/73 02/05/17 07:00 Pulse Ox 95 02/05/17 07:00 Intake & Output 02/04/17 02/05/17 02/05/17 18:59 06:59 18:59 Intake Total 800 Output Total 1000 Balance 800 -1000 Intake: IV 800 Dextrose 5%-0.9% NaCl 1, 700 000 ml @ 100 mls/hr IV . Q10H [facility] Rx#:[id number] ceFAZolin 2 gm In Sodium 100 Chloride 0.9% 100 ml @ 100 mls/hr IVPB Q8HR [facility] Rx#:[id number] Output: Urine 1000 Other: Voiding Method Toilet Toilet Toilet Urinal Urinal Urinal - Exam PHYSICAL EXAMINATION: GENERAL: The patient is alert and oriented x3, not in any acute distress. Well developed, well nourished. HEENT: Pupils are round and equally reacting to light. EOMI. No scleral icterus. No conjunctival pallor. Normocephalic, atraumatic. No pharyngeal erythema. No thyromegaly. CARDIOVASCULAR: S1 and S2 present. No murmurs, rubs, or gallops. PULMONARY: Chest is clear to auscultation, no wheezing or crackles. Does have bronchophony and egophony in the right upper lobes and patient does have decreased breath sounds bilaterally. ABDOMEN: Soft, nontender, nondistended, normoactive bowel sounds. No palpable organomegaly. MUSCULOSKELETAL: No joint swelling or deformity. EXTREMITIES: No cyanosis, clubbing, or pedal edema. NEUROLOGICAL: Gross neurological examination did not reveal any focal deficits. SKIN: Patient has redness and cell light is of the left toe which is swollen with lymphangitic streaking extending up to the proximally to ankle area - Labs CBC & Chem 7: 02/05/17 09:09 02/05/17 09:07 Labs: Abnormal Lab Results - Last 24 Hours (Table) 02/04/17 02/04/17 02/04/17 Range/Units 12:18 17:45 20:23 RBC (4.30-5.90) m/uL Hgb (13.0-17.5) gm/dL Hct (39.0-53.0) % MCV (80.0-100.0) fL RDW (11.5-15.5) % BUN (9-20) mg/dL Glucose (74-99) mg/dL POC Glucose (mg/dL) 187 H 182 H 252 H (75-99) mg/dL 02/05/17 02/05/17 02/05/17 Range/Units 07:38 09:07 09:09 RBC 2.58 L (4.30-5.90) m/uL Hgb 8.7 L (13.0-17.5) gm/dL Hct 25.9 L (39.0-53.0) % MCV 100.4 H (80.0-100.0) fL RDW 18.3 H (11.5-15.5) % BUN 7 L (9-20) mg/dL Glucose 233 H (74-99) mg/dL POC Glucose (mg/dL) 234 H (75-99) mg/dL Microbiology - Last 24 Hours (Table) 02/04/17 14:30 Gram Stain - Preliminary Toe - Left First Wound Culture - Preliminary 02/02/17 20:10 Blood Culture - Preliminary Blood No Growth after 48 hours Assessment and Plan Plan: 1 sepsis secondary to left toe cellulitis, possibly of pneumonia is low as per infectious disease because of this Rocephin was discontinued and patient was started on ceftezole and:blood cultures so far negative. he has minimal or no improvement in left toe cellulitis compared to yesterday 2 hypovolemic hyponatremia: minimal with IV fluids. #3 type 2 diabetes mellitus: Continue his home regimen monitor blood sugars titration as per the blood sugars. Fairly controlled blood sugars today #4 hypertension #5 hyperlipidemia #6 coronary artery disease #7 cerebrovascular accident in the past For above-mentioned chronic medical problems or go ahead and continue his home medications. Repeat lites and CBC tomorrow.
[2017-02-05 11:46] LABS: Glucose,Whole Blood 202 mg/dL (75-99)
--- NOTE | 2017-02-05 13:18 | CONS ---
DATE OF CONSULTATION: 02/04/2017 REASON FOR CONSULTATION: Fever. HISTORY OF PRESENT ILLNESS: The patient is a 61 year old male who presented to [facility] ER with chief complaints of fever. apparently, the patient ( ) was out camping and hence developed a blister and open wound on the plantar aspect of his left big toe. The patient is not sure if he stepped on something. The patient started having a fever and subsequently also noticed to have a left foot becoming more swollen and red. Did have some dull pain ( ) no radiation. No significant drainage from the wound on the left big toe. The patient subsequently started having shortness of breath. With these symptoms, the patient presented to [facility] ER. En route to the ER, the patient did have fever of 101 degrees, elevated white count. Chest x- ray revealed left lower lobe infiltrate. ( ) mild. Subsequently, the patient has been diagnosed with pneumonia. Initially started on Zosyn that was switched to Rocephin and Zithromax. I was asked to see the patient for further recommendations regarding antibiotic therapy. The patient is currently breathing comfortably on room air. Denies significant chest pain. No shortness of breath. Very minimal cough. No abdominal pain. No sputum. No nausea, vomiting or any diarrhea. REVIEW OF SYSTEMS Constitutional: Positive for weakness and fever. EYES: No complaint. ENT: No complaint. Respiratory: As per HPI. Cardiovascular: No complaint. Genitourinary: No complaint. Gastrointestinal: No complaint. Musculoskeletal: As per HPI. Integumentary: As per HPI. Psychological: No complaint. Endocrine: No complaint. Neurological: No complaint. Past medical history significant for TIA, diabetes mellitus, hypertension, hyperlipidemia, SD, chronic back and neck pain. Past surgical history: ( ). SOCIAL HISTORY: The patient is a current every day smoker. No drinking or drug use. FAMILY HISTORY: No pertinent findings were noticed. ALLERGIES: CODEINE. Medications currently include the patient is on: 1. Tylenol. 2. DuoNeb. 3. Aspirin. 4. Lipitor. 5. Rocephin. 6. Zithromax. 7. Vitamin D3. 8. Plavix. 9. Flexeril. 10. Pepcid. 11. Neurontin. 12. Heparin. 13. Dilaudid. 14. Humalog. 15. Lopressor. 16. Zofran. 17. Percocet. On examination, blood pressure is 138/64 with a pulse of 91. Temperature 98.8. T-Max 104. He is 96% on room air. General description is a middle age male lying in bed in no distress. No tachypnea or accessory muscles of respiration use. HEENT: Examination shows slight pallor. No scleral icterus. Oral mucous membranes dry. NECK: Trachea is central. No thyromegaly. LUNGS: Unlabored breathing. Clear to auscultation anteriorly. No wheeze or crackles. HEART: S1, S2 regular rate and rhythm. ABDOMEN: Soft, no tenderness. No guarding or rigidity. EXTREMITIES: Examination of the left foot, the patient did have some swelling and redness dorsum of the foot with a wound on the plantar aspect of the left big toe. Wound was cleaned. Culture obtained. No purulent drainage was noticed. NEUROLOGICALLY: The patient is awake, alert and oriented times three. Mood and affect normal. LABS: Hemoglobin 8.1, white count 11.2 with admission white count 12, BUN 8, creatinine 0.8. The patient did have blood cultures obtained which are currently negative so far. X-ray report as mentioned above. DIAGNOSTIC IMPRESSION AND PLAN: Patient was admitted to the hospital with sepsis in a patient who did have fever of 104 degrees. Did have elevated white count ( ) likely ( ) left big toe wound with ( ) not entirely excluded. The patient did have some shortness of breath but no cough or sputum production with very mild left perihilar infiltrate. Clinically doubt signficant pneumonia. PLAN: 1. Discontinue Rocephin and Zithromax. 2. Wound culture has been obtained to target antibiotic therapy. 3. We will obtain x-rays of the left foot. 4. We will try the patient on ( ) every eight hours. 5. We will follow up on his clinical condition and cultures to further adjust medications if needed. Thank you for this consultation. We will follow this patient along with you. CHRIS
[2017-02-05 17:14] LABS: Glucose,Whole Blood 138 mg/dL (75-99)
[2017-02-05] MEDS ORDERED: IV VANCOMYCIN PER PHARMACY 1 EACH MISC MISCELLANE PRN (19:25)
[2017-02-05] MEDS ORDERED: VANCOMYCIN 1,750 MG in SODIUM CHLORIDE 0.9% 250 ML IVPB ONE (20:30)
[2017-02-05 20:42] LABS: Glucose,Whole Blood 167 mg/dL (75-99)
[2017-02-05] MEDS: ATORVASTATIN 20 MG TAB PO SCH (21:45)
[2017-02-06] MEDS: VANCOMYCIN 1,500 MG in SODIUM CHLORIDE 0.9% 250 ML IVPB SCH ×3 (05:52→21:45)
[2017-02-06 07:23] LABS: Glucose,Whole Blood 163 mg/dL (75-99)
[2017-02-06] MEDS: DEXTROSE 5%-0.9% NACL 1,000 ML IV SCH (07:48)
[2017-02-06] MEDS: CHOLECALCIFEROL 400 UNIT TAB PO SCH ×2 (07:50→20:52)
[2017-02-06] MEDS: HEPARIN SODIUM,PORCINE 5,000 UNIT/ML 1 ML VIAL SQ SCH ×2 (07:50→16:38)
[2017-02-06] MEDS: ASPIRIN 81 MG CHEW PO SCH (07:50)
[2017-02-06] MEDS: CLOPIDOGREL 75 MG TAB PO SCH (07:51)
[2017-02-06] MEDS: FAMOTIDINE 20 MG TAB PO SCH ×2 (07:52→20:53)
[2017-02-06] MEDS: CYCLOBENZAPRINE 10 MG TAB PO SCH ×3 (07:52→20:52)
[2017-02-06] MEDS: GABAPENTIN 400 MG CAP PO SCH ×3 (07:52→20:53)
[2017-02-06] MEDS: METOPROLOL TARTRATE 25 MG TAB PO SCH ×2 (07:53→20:53)
[2017-02-06] MEDS: oxyCODONE-APAP 10-325MG 1 EACH TAB PO PRN ×3 (07:54→21:24)
[2017-02-06] MEDS: INSULIN LISPRO (humaLOG) 300 UNIT/3 ML VIAL SQ SCH ×5 (07:56→20:54)
[2017-02-06 08:07] LABS: Anisocytosis Slight; CH 32.9; HCT 25.1 % (39.0-53.0); HDW 3.03; HGB 8.4 gm/dL (13.0-17.5); MCH 33.3 pg (25.0-35.0); MCHC 33.4 g/dL (31.0-37.0); MCV 99.7 fL (80.0-100.0); Macrocytosis Slight; Mean Platelet Volume 8.1; RBC 2.51 m/uL (4.30-5.90); RDW 18.1 % (11.5-15.5); WBC 11.2 k/uL (3.8-10.6)
[2017-02-06 08:19] LABS: Anion Gap 6 mmol/L; Blood Urea Nitrogen 7 mg/dL (9-20); Calcium 8.3 mg/dL (8.4-10.2); Carbon Dioxide 26 mmol/L (22-30); Chloride 103 mmol/L (98-107); Glucose 137 mg/dL (74-99); Non-African American GFR(MDRD) >60 (>60 ml/min/1.73 sqM); Sodium 135 mmol/L (137-145)
[2017-02-06] MEDS: IPRATROPIUM-ALBUTEROL 3 ML NEB INHALATION SCH ×4 (08:54→20:31)
[2017-02-06 11:50] LABS: Glucose,Whole Blood 292 mg/dL (75-99)
--- NOTE | 2017-02-06 13:09 | PN ---
DATE OF SERVICE: 02/05/2017 Reason for followup is left big toe wound with cellulitis. INTERVAL HISTORY: The patient overall ( ) has improved. The patient noticed to have more swelling and redness of the left foot area with no significant drainage from it. The patient denies any significant chest pain or shortness of breath. No cough, no abdominal pain or any diarrhea. On examination, his blood pressure is 147/57 with a pulse of 82, temperature 98.5, he is 94% on room air. General description is a middle-aged male lying in bed, in no distress. RESPIRATORY SYSTEM: Unlabored breathing, clear to auscultation. HEART: S1, S2, regular rate and rhythm. ABDOMEN: Soft, no tenderness. Left foot is more swollen and red. No significant drainage. LABS: Hemoglobin 8.7, white count 10.2 with a BUN of 17, creatinine 0.75. Cultures obtained from the left toe presumed to be MRSA. Blood cultures so far are negative. DIAGNOSTIC IMPRESSION AND PLAN: Patient with left foot cellulitis with a wound on the frontal aspect of the big toe. Cultures now with MRSA. Blood cultures will be repeated. Had low-grade fever. Vancomycin has been added and will discontinue cefazolin. Continue supportive care. MTDD
--- NOTE | 2017-02-06 14:06 | P.GSCN ---
History of Present Illness History of present illness: 61 old diabetic male patient has been admitted admitted with fever cough or pneumonia patient has developed a cellulitis with abscess formation noted on the right foot plantar aspect at base of the big toe WAS consulted for local wound care Patient has history of diabetes hypertension On examination neck is supple no bruit appreciated Chest clear first and second sound present Abdomen soft nontender Right foot has cellulitis of her dorsal suspect the foot base of the foot has some fluctuation and abscess formation plan is I and D and culture of the wound daily with IV antibiotic we will arrange for I&D of the right foot Past Medical History Past Medical History: CVA/TIA, Diabetes Mellitus, Hyperlipidemia, Hypertension, Myocardial Infarction (NM) Additional Past Medical History / Comment(s): chronic bronchitis; back and neck pain Last Myocardial Infarction Date:: 2009 History of Any Multi-Drug Resistant Organisms: MRSA Year Discovered:: 02/04/17 MDRO Source:: TOE Past Surgical History: Heart Catheterization With Stent, Hernia Repair, Orthopedic Surgery Additional Past Surgical History / Comment(s): abdominal superior vena cava stent; right rotor cuff sx; left knee sx; oleg wrist sx; left ankle sx; ingunial hernia repair Date of Last Stent Placement:: 2011 Past Psychological History: No Psychological Hx Reported Smoking Status: Current every day smoker Past Alcohol Use History: None Reported Past Drug Use History: None Reported - Past Family History Son(s) Family Medical History: Hyperlipidemia, Hypertension Additional Family Medical History / Comment(s): bad back; Daughter(s) Family Medical History: Diabetes Mellitus Additional Family Medical History / Comment(s): ddd-lumbar; scolosis; spina bifada Medications and Allergies Home Medications Medication Instructions Recorded Confirmed Type Aspirin EC [Ecotrin Low Dose] 81 mg PO DAILY 02/04/16 02/02/17 History Butalb/Acetaminophen/Caffeine 1 tab PO BID PRN 02/04/16 02/02/17 History [Cekfpd-Uaolcfdj-Cvco 50-325-40] Clopidogrel Bisulfate [Clopidogrel] 75 mg PO DAILY 02/04/16 02/02/17 History Gabapentin [Gabapentin] 800 mg PO TID 02/04/16 02/02/17 History Insulin Detemir [Levemir Flextouch] 24 units SQ DAILY@1700 02/04/16 02/02/17 History Metoprolol Succinate [Toprol XL] 25 mg PO BID 02/04/16 02/02/17 History Pioglitazone HCl [Pioglitazone HCl] 45 mg PO DAILY 02/04/16 02/02/17 History Simvastatin [Zocor] 40 mg PO HS 02/04/16 02/02/17 History glyBURIDE/METFORMIN HCL 1 tab PO BID 02/04/16 02/02/17 History [glyBURIDE/METFORMIN HCL 5-500 mg] oxyCODONE-APAP 10-325MG [Percocet 1 tab PO TID PRN 02/04/16 02/02/17 History 10-325 mg] Cyclobenzaprine [Flexeril] 10 mg PO TID 02/02/17 02/02/17 History Vitamin D3(Unknown Dose) 1 tab PO BID 02/02/17 02/02/17 History Allergies Allergy/AdvReac Type Severity Reaction Status Date / Time codeine AdvReac Nausea & Verified 02/02/17 20:25 Vomiting Surgical - Exam Vital Signs Temp Pulse Resp BP Pulse Ox 104.6 F H 108 H 22 139/59 91 L 02/02/17 19:51 02/02/17 19:51 02/02/17 19:51 02/02/17 19:51 02/02/17 19:51 Results - Labs 02/06/17 07:26 02/06/17 07:26 Abnormal Lab Results - Last 24 Hours (Table) 02/05/17 02/05/17 02/06/17 Range/Units 17:08 20:35 07:02 WBC (3.8-10.6) k/uL RBC (4.30-5.90) m/uL Hgb (13.0-17.5) gm/dL Hct (39.0-53.0) % RDW (11.5-15.5) % Sodium (137-145) mmol/L BUN (9-20) mg/dL Glucose (74-99) mg/dL POC Glucose (mg/dL) 138 H 167 H 163 H (75-99) mg/dL Calcium (8.4-10.2) mg/dL 02/06/17 02/06/17 02/06/17 Range/Units 07:26 07:26 11:41 WBC 11.2 H (3.8-10.6) k/uL RBC 2.51 L (4.30-5.90) m/uL Hgb 8.4 L (13.0-17.5) gm/dL Hct 25.1 L (39.0-53.0) % RDW 18.1 H (11.5-15.5) % Sodium 135 L (137-145) mmol/L BUN 7 L (9-20) mg/dL Glucose 137 H (74-99) mg/dL POC Glucose (mg/dL) 292 H (75-99) mg/dL Calcium 8.3 L (8.4-10.2) mg/dL Microbiology - Last 24 Hours (Table) 02/02/17 20:10 Blood Culture - Preliminary Blood No Growth after 72 hours 02/04/17 14:30 Gram Stain - Preliminary Toe - Left First Wound Culture - Preliminary Presumptive MRSA Diabetes panel 02/06/17 Range/Units 07:26 Sodium 135 L (137-145) mmol/L Potassium 4.0 (3.5-5.1) mmol/L Chloride 103 (98-107) mmol/L Carbon Dioxide 26 (22-30) mmol/L BUN 7 L (9-20) mg/dL Creatinine 0.72 (0.66-1.25) mg/dL Glucose 137 H (74-99) mg/dL Calcium 8.3 L (8.4-10.2) mg/dL Calcium panel 02/06/17 Range/Units 07:26 Calcium 8.3 L (8.4-10.2) mg/dL Pituitary panel 02/06/17 Range/Units 07:26 Sodium 135 L (137-145) mmol/L Potassium 4.0 (3.5-5.1) mmol/L Chloride 103 (98-107) mmol/L Carbon Dioxide 26 (22-30) mmol/L BUN 7 L (9-20) mg/dL Creatinine 0.72 (0.66-1.25) mg/dL Glucose 137 H (74-99) mg/dL Calcium 8.3 L (8.4-10.2) mg/dL Adrenal panel 02/06/17 Range/Units 07:26 Sodium 135 L (137-145) mmol/L Potassium 4.0 (3.5-5.1) mmol/L Chloride 103 (98-107) mmol/L Carbon Dioxide 26 (22-30) mmol/L BUN 7 L (9-20) mg/dL Creatinine 0.72 (0.66-1.25) mg/dL Glucose 137 H (74-99) mg/dL Calcium 8.3 L (8.4-10.2) mg/dL
[2017-02-06] MEDS ORDERED: LIDOCAINE 1% INJ 10MG/ML (20 ML MDV) SQ ONE (14:30)
--- NOTE | 2017-02-06 16:39 | P.PN ---
Subjective Date of service 02/06/2017. Progress note being dictated for Dr. Denton. Interval history: 61-year-old male admitted for possible right upper lobe pneumonia, patient has left toe cellulitis, which looks was then as today because of which I'm adding vancomycin and infectious disease will be consulted. 02/05/2017 Patient was a valid by infectious disease. Believe the possibility of pneumonia is low and his infection is secondary to left toe cellulitis. Patient was changed to ceftezole. Patient denied any shortness of breath today, denied any fever, abdominal pain, nausea, dysuria. 02/06/2017. Culture now positive with presumptive MRSA, afebrile, T-max 100.3. Repeat cultures are ordered. Ceftezole and discontinued and vancomycin added as per infectious disease. Complains of occasional spasms of the affected extremity. Denies chest pain, palpitations or increasing shortness of breath. Occasional nonproductive cough. Tolerating diet with no nausea vomiting or diarrhea. Objective - Vital Signs Vital signs: Vital Signs Temp 98.3 F 02/06/17 14:21 Pulse 92 02/06/17 14:21 Resp 20 02/06/17 14:21 BP 165/83 02/06/17 14:21 Pulse Ox 95 02/06/17 14:21 Intake & Output 02/05/17 02/06/17 02/06/17 18:59 06:59 18:59 Intake Total 1530 Output Total 1500 Balance 30 Intake: IV 800 Dextrose 5%-0.9% NaCl 1, 800 000 ml @ 50 mls/hr IV . Q20H [facility] Rx#:[id number] Intake, IV Titration 250 Amount Vancomycin 1,750 mg In 250 Sodium Chloride 0.9% 250 ml @ 125 mls/hr IVPB ONCE ONE Rx#:[id number] Oral 480 Output: Urine 1500 Other: Voiding Method Toilet Toilet Toilet Urinal Urinal Urinal # Voids 2 2 - Exam GENERAL: The patient is alert and oriented x3, not in any acute distress. Well developed, well nourished. HEENT: Pupils are round and equally reacting to light. EOMI. No scleral icterus. No conjunctival pallor. Normocephalic, atraumatic. No pharyngeal erythema. No thyromegaly. CARDIOVASCULAR: S1 and S2 present. No murmurs, rubs, or gallops. PULMONARY: Chest is clear to auscultation, bilateral bases diminished, no wheezing or crackles. ABDOMEN: Soft, nontender, nondistended, normoactive bowel sounds. No palpable organomegaly. MUSCULOSKELETAL: No joint swelling or deformity. EXTREMITIES: No cyanosis, clubbing, or pedal edema. NEUROLOGICAL: Gross neurological examination did not reveal any focal deficits. SKIN: Left foot dressing clean dry and intact. - Labs CBC & Chem 7: 02/06/17 07:26 02/06/17 07:26 Labs: Abnormal Lab Results - Last 24 Hours (Table) 02/05/17 02/05/17 02/06/17 Range/Units 17:08 20:35 07:02 WBC (3.8-10.6) k/uL RBC (4.30-5.90) m/uL Hgb (13.0-17.5) gm/dL Hct (39.0-53.0) % RDW (11.5-15.5) % Sodium (137-145) mmol/L BUN (9-20) mg/dL Glucose (74-99) mg/dL POC Glucose (mg/dL) 138 H 167 H 163 H (75-99) mg/dL Calcium (8.4-10.2) mg/dL 02/06/17 02/06/17 02/06/17 Range/Units 07:26 07:26 11:41 WBC 11.2 H (3.8-10.6) k/uL RBC 2.51 L (4.30-5.90) m/uL Hgb 8.4 L (13.0-17.5) gm/dL Hct 25.1 L (39.0-53.0) % RDW 18.1 H (11.5-15.5) % Sodium 135 L (137-145) mmol/L BUN 7 L (9-20) mg/dL Glucose 137 H (74-99) mg/dL POC Glucose (mg/dL) 292 H (75-99) mg/dL Calcium 8.3 L (8.4-10.2) mg/dL Microbiology - Last 24 Hours (Table) 02/02/17 20:10 Blood Culture - Preliminary Blood No Growth after 72 hours 02/04/17 14:30 Gram Stain - Preliminary Toe - Left First Wound Culture - Preliminary Presumptive MRSA Assessment and Plan Plan: 1 sepsis secondary to left toe cellulitis, possibly of pneumonia is low as per infectious disease, cultures positive for presumptive MRSA. 2 hypovolemic hyponatremia: minimal with IV fluids. #3 type 2 diabetes mellitus #4 hypertension #5 hyperlipidemia #6 coronary artery disease #7 cerebrovascular accident in the past Plan: Continue on current medication regime ,monitoring and symptomatic treatment. Cultures currently positive for presumptive MRSA, potential PICC line placement pending final culture results .vascular surgeon consult placed with recommendations noted prognosis guarded. Repeat lites and CBC tomorrow. Further recommendations to follow. The impression and plan of care has been dictated as directed. : I performed a H&P examination of this patient and discussed the same with the dictator. I agree with the dictator's note. Any additional findings/opinions/ etc. will be noted..
--- NOTE | 2017-02-06 17:08 | P.PCN ---
Preoperative Diagnosis: Postoperative Diagnosis: Procedure(s) Performed: Implants: Indications for Procedure: Operative Findings: Description of Procedure: Diagnoses is abscess left foot base of the big toe and marked cellulitis of the foot I and D of the abscess the foot with superficial debridement of the necrotic tissue This patient came with the marked cellulitis and abscess formation noted base of the the foot lateral aspect there were some loose area of skin necrosis noted at the base of the big toe one foot was prepped and draped applied just used an manner 1% lidocaine for infected then we used a knife made a elliptical incision around the necrotic skin and deepened through skin and fat lateral pus came out which was drained and took a culture there were some necrotic tissue which was excised with a scissor and the incision was about 4 cm wound was copiously irrigated with saline central cream applied to the wound and dressing was applied plan is irrigation of the wound and the central cream daily continue with IV antibiotic patient tolerated the procedure well dressing was applied
[2017-02-06] MEDS: COLLAGENASE 250 UNIT/GM OINTMENT 30 GM TUBE TOPICAL SCH (17:47)
[2017-02-06 17:56] LABS: Glucose,Whole Blood 180 mg/dL (75-99)
[2017-02-06 20:41] LABS: Glucose,Whole Blood 208 mg/dL (75-99)
[2017-02-06] MEDS: ACETAMINOPHEN TAB 500 MG TAB PO PRN (20:51)
[2017-02-06] MEDS: DOCUSATE 100 MG CAP PO SCH (20:52)
[2017-02-06] MEDS: ATORVASTATIN 20 MG TAB PO SCH (20:53)
[2017-02-06 23:04] VITALS: RESP 16
[2017-02-07] MEDS: HEPARIN SODIUM,PORCINE 5,000 UNIT/ML 1 ML VIAL SQ SCH ×2 (00:45→08:50)
[2017-02-07] MEDS: VANCOMYCIN 1,500 MG in SODIUM CHLORIDE 0.9% 250 ML IVPB SCH ×2 (05:35→12:37)
[2017-02-07] MEDS: IPRATROPIUM-ALBUTEROL 3 ML NEB INHALATION SCH ×3 (07:14→11:15)
[2017-02-07 07:22] LABS: Glucose,Whole Blood 214 mg/dL (75-99)
--- NOTE | 2017-02-07 08:32 | PN ---
DATE OF SERVICE: 02/06/17 REASON FOR FOLLOW UP: Left big toe and foot ulcers with MRSA. INTERVAL HISTORY: The patient is afebrile. He is breathing comfortably. Pain to left foot is currently controlled. Denies any signficaint chest pain, shortness of breath, cough. No nausea or vomiting. No abdominal pain. No diarrhea. On examination, blood pressure 155/83, pulse 92, temperature 98.3, he is 95% on room air. General description revealed a middle age male, lying in the bed, in no distress. Respiratory: Unlabored breathing. Clear to auscultation anteriorly. Heart: S1, S2 regular rate and rhythm. Abdomen soft, no tenderness. Left foot swelling and redness has slightly improved. Labs: Hemoglobin 8.4, white count 11.2. BUN 7, creatinine 0.72. Wound culture with MRSA, blood cultures have been negative. DIAGNOSTIC IMPRESSION AND PLAN: Patient with left big toe abscess with MRSA, status post debridement. In view of the ( ) infection, the patient will benefit from getting a PICC line, outpatient IV antibiotic therapy in the form of Vancomcycin for at least two weeks. Continue supportive care. MTDD
[2017-02-07] MEDS: INSULIN LISPRO (humaLOG) 300 UNIT/3 ML VIAL SQ SCH ×2 (08:49→12:25)
[2017-02-07 08:50] LABS: Anion Gap 7 mmol/L; Blood Urea Nitrogen 6 mg/dL (9-20); Calcium 8.5 mg/dL (8.4-10.2); Carbon Dioxide 28 mmol/L (22-30); Chloride 101 mmol/L (98-107); Glucose 183 mg/dL (74-99); Non-African American GFR(MDRD) >60 (>60 ml/min/1.73 sqM); Potassium 4.4 mmol/L (3.5-5.1); Sodium 136 mmol/L (137-145)
[2017-02-07] MEDS: CHOLECALCIFEROL 400 UNIT TAB PO SCH (08:50)
[2017-02-07] MEDS: ASPIRIN 81 MG CHEW PO SCH (08:50)
[2017-02-07] MEDS: CLOPIDOGREL 75 MG TAB PO SCH (08:50)
[2017-02-07] MEDS: FAMOTIDINE 20 MG TAB PO SCH (08:51)
[2017-02-07] MEDS: CYCLOBENZAPRINE 10 MG TAB PO SCH (08:51)
[2017-02-07] MEDS: COLLAGENASE 250 UNIT/GM OINTMENT 30 GM TUBE TOPICAL SCH (08:51)
[2017-02-07] MEDS: DOCUSATE 100 MG CAP PO SCH (08:51)
[2017-02-07] MEDS: METOPROLOL TARTRATE 25 MG TAB PO SCH (08:52)
[2017-02-07] MEDS: GABAPENTIN 400 MG CAP PO SCH (08:52)
[2017-02-07] MEDS: oxyCODONE-APAP 10-325MG 1 EACH TAB PO PRN (08:55)
[2017-02-07 09:11] LABS: Anisocytosis Slight; CH 32.4; CHCM 32.7; HCT 28.3 % (39.0-53.0); HDW 3.07; HGB 9.2 gm/dL (13.0-17.5); Hypochromasia Slight; Immature Gran Flag Slight; MCH 32.2 pg (25.0-35.0); MCHC 32.4 g/dL (31.0-37.0); MCV 99.2 fL (80.0-100.0); Macrocytosis Slight; Mean Platelet Volume 7.7; RBC 2.85 m/uL (4.30-5.90); RDW 18.5 % (11.5-15.5); WBC (Perox) 11.82
[2017-02-07] MEDS ORDERED: LIDOCAINE 2% INJ 20 MG/ML SQ ONE (10:54)
[2017-02-07 10:56] LABS: Add Differential Manual Differential
[2017-02-07 11:15] LABS: Band Neutrophils % 1.5 %; Manual Review Performed; Metamyelocytes % 2.5 %; Nucleated Red Blood Cells 0 /100 WBC (0-0); Total Cells Counted 200
[2017-02-07 11:18] VITALS: PULSE 90
[2017-02-07] MEDS ORDERED: INSULIN GLARGINE 100 UNIT/ML 10 ML VIAL SQ ONE (11:53)
[2017-02-07 12:37] LABS: Glucose,Whole Blood 123 mg/dL (75-99)
--- NOTE | 2017-02-07 12:43 | IR ---
EXAMINATION TYPE: IR cvc insert >=5 years DATE OF EXAM: 02/07/2017 COMPARISON: NONE CLINICAL HISTORY: Infection Needs long-term intravenous access for antibiotics. PROCEDURE: After informed consent, the skin overlying the left basilic vein was localized with ultrasound and no sylvia to be compressible and patent. An ultrasound image was obtained and submitted on the patient's c swain. The overlying skin was prepped and draped and Lidocaine was used for local anesthesia. A skin lane was made with a scalpel. Access was gained to the vein under ultrasound guidance with a 21 gau ge needle and a 0.018 inch wire was advanced. Access site was dilated with Peel-Away sheath and cath eter tailored to the appropriate length and advanced such that the distal tip is at the cavoatrial ju nction. Spot image was obtained verifying placement. Catheter was fixed to the skin with suture and a sterile dressing was placed following hemostasis. Catheter was aspirated and flushed with saline. Patient was discharged in stable condition without complication. Maximal barrier technique is utili zed. Ultrasound image is documented on the chart. Ultrasound used with sterile technique. Fluoro time and fluoroscopic images submitted to document procedure: 0.2 minutes fluoroscopy time, 19 intraoperative C-arm images document the procedure IMPRESSION: STATUS POST ULTRASOUND AND FLUOROSCOPIC GUIDED PICC LINE PLACEMENT, READY FOR USE. THIS PROCEDURE WAS PERFORMED BY THE UNDERSIGNED.
[2017-02-07 15:18] VITALS: BP 152/75; TEMP 99.3
--- NOTE | 2017-02-07 18:20 | PN ---
DATE OF SERVICE: 02/07/17 REASON FOR FOLLOW UP: MRSA left foot abscess and cellulitis. INTERVAL HISTORY: The patient is afebrile. The patient is status post I&D of the left foot abscess by Dr. Muir at the bedside. The patient tolerated the procedure. Currently the pain is controlled. Denied significant changes pain, shortness of breath, cough, abdominal pain or any diarrhea. On examination, blood pressure 168/77, pulse 84, temperature 98.1, he is 92% on room air. General description revealed a middle age male lying in the bed, in no distress. Respiratory: Unlabored breathing. Clear to auscultation anteriorly. Heart: S1, S2 regular rate and rhythm. Abdomen soft, no tenderness. Left foot overall swelling and redness slightly improved. No drainage. Labs: Hemoglobin 9.2, white count 11, BUN 6, creatinine 0.75. DIAGNOSTIC IMPRESSION AND PLAN: Patient with left foot abscess and cellulitis status post drainage, cultures with MRSA, blood cultures negative. In view of the extensive infection, recommend getting a PICC line and IV Vancomycin, pharmacy to dose for at least two weeks with outpatient followup. MTDD
== END 2017-02-07 15:15 | disposition home health service (06) | DRG 853 ==
LOC: EC 19:50 → 5MS5E 21:23
PROVIDERS: ADMIT Internal Medicine; ATTEND Internal Medicine
PROC: 0HBNXZZ Excision of Left Foot Skin, External Approach (ICD-10-PCS; principal; 2017-02-06)
PROC: 0Y9N0ZZ Drainage of Left Foot, Open Approach (ICD-10-PCS; 2017-02-06)
PROC: B548ZZA Ultrasonography of Superior Vena Cava, Guidance (ICD-10-PCS; 2017-02-07)
PROC: 02HV33Z Insertion of Infusion Device into Superior Vena Cava, Percutaneous Approach (ICD-10-PCS; 2017-02-07 10:31)
DX: A41.9 Sepsis, unspecified organism (principal); J13 Pneumonia due to Streptococcus pneumoniae; E11.621 Type 2 diabetes mellitus with foot ulcer; E87.1 Hypo-osmolality and hyponatremia; L03.116 Cellulitis of left lower limb; L02.611 Cutaneous abscess of right foot; L03.115 Cellulitis of right lower limb; L97.529 Non-pressure chronic ulcer of other part of left foot with unspecified severity; E78.5 Hyperlipidemia, unspecified; L03.032 Cellulitis of left toe; F17.200 Nicotine dependence, unspecified, uncomplicated; I10 Essential (primary) hypertension; J42 Unspecified chronic bronchitis; G89.29 Other chronic pain; M54.2 Cervicalgia; M54.9 Dorsalgia, unspecified; I25.10 Atherosclerotic heart disease of native coronary artery without angina pectoris; I25.2 Old myocardial infarction; Z79.82 Long term (current) use of aspirin; Z79.02 Long term (current) use of antithrombotics/antiplatelets; Z79.84 Long term (current) use of oral hypoglycemic drugs; Z79.4 Long term (current) use of insulin; Z79.899 Other long term (current) drug therapy; Z86.14 Personal history of Methicillin resistant Staphylococcus aureus infection; Z86.73 Personal history of transient ischemic attack (TIA), and cerebral infarction without residual deficits
CPT/HCPCS: 36415; 36569; 71020; 74020; 76937; 77001; 80048; 80053; 81001; 82150; 83036; 83605; 83690; 85025; 85027; 87040; 87070; 87075; 87077; 87086; 87186; 87205; 93005; 94640

== ENCOUNTER → 2017-04-24 | Outpatient (CLI) | payer MEDICARE ==
--- NOTE | 2017-04-24 15:16 | MR ---
EXAMINATION TYPE: MR lumbar spine wo con DATE OF EXAM: 04/24/2017 COMPARISON: NONE HISTORY: Low back pain TECHNIQUE: Multiplanar, multisequence images of the lumbar spine were acquired. L1-L2: Normal disc appearance without desiccation. No herniation, protrusion or disc bulging. No ca nal stenosis is present. Foramina are patent bilaterally. L2-L3: Normal disc appearance without desiccation. No herniation, protrusion or disc bulging. No ca nal stenosis is present. Foramina are patent bilaterally. L3-L4: Mild posterior broad-based disc bulge contacts anterior thecal sac. No significant central eugenia nosis or foraminal encroachment. L4-L5: Facet arthropathy with hypertrophy of the ligamentum flavum encroaches somewhat on the lateral recess greater on the left than on the right. No significant foraminal encroachment. Small posterior disc bulge effaces the anterior epidural space. No significant spinal stenosis. L5-S1: Mild posterior broad-based disc bulge causes slight anterior mass effect on the thecal sac and possibly contacting the proximal S1 nerve roots. Circumferential extension causes some mild foramina l encroachment.. Lumbar segments are intact. No paraspinal masses are identified. Conus medullaris has a normal appe arance. Mild spinal curvature noted. IMPRESSION: stable exam, mild degenerative changes
== END | disposition home or self-care (01) ==
LOC: RADMRIMAIN 13:22
PROVIDERS: ATTEND Nurse Practitioner Acute Care
DX: M47.816 Spondylosis without myelopathy or radiculopathy, lumbar region (principal); Z88.5 Allergy status to narcotic agent
CPT/HCPCS: 72148

== ENCOUNTER → 2017-08-18 | Outpatient (CLI) | payer MEDICARE ==
--- NOTE | 2017-08-18 16:27 | MR ---
EXAMINATION TYPE: MR brain wo con DATE OF EXAM: 08/18/2017 COMPARISON: Prior MRI brain March 09, 2011. Prior CT brain February 04, 2016 HISTORY: Cerebral infarction, unspecified or stroke per order. Failed memory test with bilateral hear ing loss, possible stroke as there is bilateral weakness and numbness noted per patient. TECHNIQUE: Multiplanar, multisequence imaging of the brain and brainstem is performed without IV cont rast. FINDINGS: Diffusion weighted images demonstrate no evidence of a recent infarct or other diffusion abnormality. There is no extraaxial fluid collection or significant white matter signal abnormality. The ventricu lar system and cisternal spaces are normal in size and appearance. The brain volume is age appropria te. Midline structures demonstrate normal morphology. The craniocervical junction appears within normal limits. Normal vascular flow voids are present. There is redemonstration of dominant left vertebral a rtery. The visualized sinuses are clear and the globes are intact. IMPRESSION: No evidence of a recent infarct. No significant finding identified to account for patient 's symptoms. No significant change from prior studies.
== END | disposition home or self-care (01) ==
LOC: RADMRIMAIN 08:49
PROVIDERS: ATTEND Psychiatry & Neurology Neurology
DX: I63.9 Cerebral infarction, unspecified (principal); Z88.5 Allergy status to narcotic agent
CPT/HCPCS: 70551

== ENCOUNTER 2017-10-11 14:02 | Inpatient (IN) | payer MEDICAID ==
[2017-10-11] MEDS ORDERED: LORazepam 2 MG/ML INJ IV PRN (14:08)
[2017-10-11] MEDS ORDERED: ACETAMINOPHEN SUPPOSITORY 650 MG SUPP RECTAL PRN (14:08)
[2017-10-11] MEDS ORDERED: SCOPOLAMINE 1.5MG/72HR PATCH TRANSDERM PRN (14:08)
[2017-10-11] MEDS ORDERED: BISACODYL 10 MG SUPP RECTAL PRN (14:12)
[2017-10-11] MEDS ORDERED: MORPHINE SULFATE (100 MG/2 ML) 100 MG in SODIUM CHLORIDE 0.9% 100 ML IV SCH (14:15)
[2017-10-11] MEDS ORDERED: ONDANSETRON 4 MG/2 ML VIAL IVP PRN (14:16)
[2017-10-11 14:55] VITALS: BP 123/60; PULSE 88; RESP 18
--- NOTE | 2017-10-11 15:12 | P.HPIM ---
History of Present Illness H&P Date: 10/11/17 Chief Complaint: AML Pt admitted 48 hours ago with c/o progressive weakness. He was found to have severe leukocytosis with blasts in the peripheral blood. He had STAT bone marrow biopsy and aspirate [address] Chowdary, supportive care was initiated with elitek for TLS, hydrea ordered in an attempt to reduce the WBCs, at that time pt was alert and oriented. Since yesterday pt condition declined rapidly, kidney function is worsening, nearly anuric, pt is lethargic, speech is garbled and he is not responding to questions appropriately. Peripheral blast count increased form 6 to 97 in less then 48 hours. family was at bedside when seen in ICU this AM. Dr. Chowdary discussed case with Dr. Monroy , options were discussed with family but, recommendation was for comfort measures only. All questions answered. Pt is now being admitted to inpatient hospice, comfort only. Review of Systems As stated in HPI, pt is lethargic and not oriented Past Medical History Past Medical History: Cancer, CVA/TIA, Diabetes Mellitus, Hyperlipidemia, Hypertension, Myocardial Infarction (NE) Additional Past Medical History / Comment(s): COPD/chronic bronchitis, chronic back and neck pain, diabetes mellitus, hypertension, hyperlipidemia, coronary artery disease with previous NE Last Myocardial Infarction Date:: 2009 History of Any Multi-Drug Resistant Organisms: MRSA Date of last positivie culture/infection: 02/04/17 MDRO Source:: TOE Past Surgical History: Heart Catheterization With Stent, Hernia Repair, Orthopedic Surgery Additional Past Surgical History / Comment(s): Heart cath with stents (2009); abdominal superior vena cava stent; right rotor cuff sx; left knee sx; oleg wrist sx; left ankle sx; ingunial hernia repair Date of Last Stent Placement:: 2009 Past Psychological History: No Psychological Hx Reported Smoking Status: Current every day smoker Past Alcohol Use History: None Reported Past Drug Use History: None Reported - Past Family History Son(s) Family Medical History: Hyperlipidemia, Hypertension Additional Family Medical History / Comment(s): bad back; Daughter(s) Family Medical History: Diabetes Mellitus Additional Family Medical History / Comment(s): ddd-lumbar; scolosis; spina bifada Medications and Allergies Home Medications Medication Instructions Recorded Confirmed Type Aspirin EC [Ecotrin Low Dose] 81 mg PO DAILY 02/04/16 10/09/17 History Butalb/Acetaminophen/Caffeine 1 tab PO BID PRN 02/04/16 10/09/17 History [Wfjeoy-Ekdovvym-Emuq 50-325-40] Gabapentin 800 mg PO TID 02/04/16 10/09/17 History Metoprolol Succinate [Toprol XL] 25 mg PO BID 02/04/16 10/09/17 History Simvastatin [Zocor] 40 mg PO HS 02/04/16 10/09/17 History glyBURIDE/METFORMIN HCL 1 tab PO BID 02/04/16 10/09/17 History [glyBURIDE/METFORMIN HCL 5-500 mg] oxyCODONE-APAP 10-325MG [Percocet 1 tab PO TID PRN 02/04/16 10/09/17 History 10-325 mg] Cyclobenzaprine [Flexeril] 10 mg PO TID 02/02/17 10/09/17 History cycloSPORINE [Restasis] 1 applicator BOTH EYES BID 10/09/17 10/09/17 History rOPINIRole HCL [Requip] 0.5 mg PO HS 10/09/17 10/09/17 History Allergies Allergy/AdvReac Type Severity Reaction Status Date / Time codeine AdvReac Nausea & Verified 10/09/17 18:45 Vomiting Physical Exam Vitals: Vital Signs Pulse Resp BP Pulse Ox 10/11/17 14:07 88 18 123/60 95 Intake and Output 10/10/17 10/11/17 10/11/17 22:59 06:59 14:59 Other: Weight 98.6 kg - Constitutional Pt is moving in bed without purpose, mild agitation, respirations are increased but unlabored, no nasal flaring or retractions, pt does not respond to questions directly, speech is garbled, he drifts in and out of alertness rapidly. General appearance: disheveled, mild distress, obese Assessment and Plan (1) Acute myeloid leukemia Narrative/Plan: Despite preliminary bone marrow report not available this AM all clinical signs indicate acute leukemia. Pt has declined very rapidly. We discussed dialysis, leukophoresis as needing to be done before chemo could even be started and concerns that the treatment would be effective fast enough to reverse this acute situation was poor. All questions answered. Family has decided on hospice. Current Visit: Yes Status: Acute Priority: High Code(s): C92.00 - ACUTE MYELOBLASTIC LEUKEMIA, NOT HAVING ACHIEVED REMISSION SNOMED Code(s): 40200402 (2) Hospice care patient Narrative/Plan: Admit to inpatient hospice Comfort orders signed No code Current Visit: Yes Status: Acute Priority: High Code(s): Z51.5 - ENCOUNTER FOR PALLIATIVE CARE SNOMED Code(s): 001014763 Plan: Unfortunately, anticipate pt will succumb to the disease in a matter of a day or 2 Time with Patient: Greater than 30
--- NOTE | 2017-10-11 17:13 | P.PN ---
Subjective Progress Note Date: 10/11/17 Principal diagnosis: Altered mental status, profound weakness This is a 62-year-old male patient who presented to the hospital because of altered mentation, generalized weakness and fatigue. The blood work was extremely abnormal and was consistent with AML. The patient presented with a white cell count of 94,000 with significant monocytes in the order of 56% in addition to profound anemia with a hemoglobin of 8.3 and a platelet count of 231. In addition, the patient was dehydrated, was having episodes of hypoglycemia with a sugar as low as 32 for which she was given D10, initial creatinine of 1.8 which came up to 2.5, a uric acid level of 10, an LDH level of 1475, a uric acid level of 10, a calcium level of 9.4, phosphorus level of 4.6. The patient had a chest x-ray that showed no acute abnormalities. The CAT scan of the brain showed no acute abnormalities. He was brought into the intensive care unit. He was given a liter of IV fluids in the emergency department and currently is on normal state rate of 150 mL an hour. A bone marrow biopsy/aspirate was done and the results are still pending for now. The CAT scan of the abdomen and pelvis also done and showed some atelectatic changes in lung bases bilaterally in addition to a good dilated gallbladder suggestive of cholecystitis. The gallbladder was large and measured 5 cm in diameter. The LFTs including AST and ALT were 17 and 19 respectively with an alkaline phosphatase of 60 and a total bilirubin of 0.1. An ultrasound of the gallbladder was also done that showed no evidence of any Lam's sign and there was no evidence of any acute cholecystitis. No hydronephrosis. Borderline hepatomegaly The patient is seen again today 10/11/2017 in follow-up in the intensive care unit. He remains slightly more alert today but still quite weak and fatigued. Beach is quite garbled. He has not shown much improvement at all. He is really not a candidate for chemotherapy at this point. His white count is up to 118, hemoglobin 7.6, creatinine 3.0. Chest x-ray shows evidence of developing congestive heart failure. Temperature 101.3. He is requiring 6 L high flow cannula to maintain O2 saturations in the 90s. He remains tachycardic. Cultures reveal no growth to date. Objective - Vital Signs Vital signs: Vital Signs Temp Pulse 88 10/11/17 14:07 Resp 18 10/11/17 14:07 BP 123/60 10/11/17 14:07 Pulse Ox 95 10/11/17 14:07 Intake & Output 10/10/17 10/11/17 10/11/17 18:59 06:59 18:59 Weight 98.6 kg Other: Voiding Method Indwelling Catheter - Exam GENERAL: The patient is very weak,. Well developed, well nourished. Is mildly tremulous and fatigued HEENT: Pupils are round and equally reacting to light. EOMI. No scleral icterus. No conjunctival pallor. Normocephalic, atraumatic. No pharyngeal erythema. No thyromegaly. CARDIOVASCULAR: S1 and S2 present. No murmurs, rubs, or gallops. PULMONARY: Chest is clear to auscultation, no wheezing or crackles. ABDOMEN: Soft, nontender, nondistended, normoactive bowel sounds. No palpable organomegaly. MUSCULOSKELETAL: No joint swelling or deformity. EXTREMITIES: No cyanosis, clubbing, or pedal edema. NEUROLOGICAL: Gross neurological examination did not reveal any focal deficits. Does have generalized weakness SKIN: No rashes. 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 A bone marrow biopsy was done and the results are still pending. We'll be awaiting the flow cytometry. 2 acute kidney injury, probably related to low-grade tumor lysis syndrome 3 acute hypoglycemia, treated 4 acute hyperuricemia secondary to above 5 altered mentation secondary to above. Rule out underlying metabolic encephalopathy 6 COPD with some limited scar in lung bases bilaterally 7 coronary artery disease with previous coronary intervention and stenting 8 diabetes mellitus 9 hypertension 10 hyperlipidemia Plan: The patient was seen and evaluated by Dr. Monroy. He had a lengthy discussion with Dr. Chowdary and then with the patient's daughter who is present at the bedside. Patient's overall prognosis is quite poor. She did elect to place him in hospice/comfort care. He'll be transferred to the oncology unit in a more comfortable setting. I, the cosigning physician, performed a history & physical examination of the patient. Lungs sounds are clear bilateral posterior bases. Maintaining good O2 saturations in the 90s on 6 liters high flow nasal cannula. I discussed the assessment and plan of care with my nurse practitioner, Mariluz Hemphill. I attest to the above note as dictated by her.
--- NOTE | 2017-10-12 10:24 | P.DS ---
Providers Date of admission: 10/11/17 14:03 Expected date of discharge: 10/11/17 Attending physician: Emile Barr Primary care physician: Marta Johnston - Discharge Diagnosis(es) (1) Acute myeloid leukemia Status: Acute Priority: High (2) Hospice care patient Status: Acute Priority: High Hospital Course: Pt was seen in consult for luekocytosis, serious concern for AML, Bone marrow was done STAT and supporitve meds ordered, unfortunately pt declined rapidly and family opted for comfort. Pt was palce on inpatient hospice and . Plan - Discharge Summary New Discharge Prescriptions: No Action Aspirin EC [Ecotrin Low Dose] 81 mg PO DAILY glyBURIDE/METFORMIN HCL [glyBURIDE/METFORMIN HCL 5-500 mg] 1 tab PO BID Simvastatin [Zocor] 40 mg PO HS Butalb/Acetaminophen/Caffeine [Tottuy-Exthdhbx-Npzb 50-325-40] 1 tab PO BID PRN PRN Reason: Headache Metoprolol Succinate [Toprol XL] 25 mg PO BID Gabapentin 800 mg PO TID oxyCODONE-APAP 10-325MG [Percocet 10-325 mg] 1 tab PO TID PRN PRN Reason: Pain Cyclobenzaprine [Flexeril] 10 mg PO TID rOPINIRole HCL [Requip] 0.5 mg PO HS cycloSPORINE [Restasis] 1 applicator BOTH EYES BID Discharge Disposition: - Preliminary Cause of Preliminary Cause of : AML Pending Studies Pending Results: Bone marrow
== END 2017-10-11 22:50 | disposition expired | DRG 951 ==
LOC: RADXRMAIN 14:02 → 6ICU 14:03 → 5ONC 15:20
PROVIDERS: ADMIT Internal Medicine; ATTEND Internal Medicine
DX: Z51.5 Encounter for palliative care (principal); E88.3 Tumor lysis syndrome; C92.00 Acute myeloblastic leukemia, not having achieved remission; N17.9 Acute kidney failure, unspecified; Z66 Do not resuscitate; I11.0 Hypertensive heart disease with heart failure; I50.9 Heart failure, unspecified; E11.649 Type 2 diabetes mellitus with hypoglycemia without coma; E78.5 Hyperlipidemia, unspecified; I25.2 Old myocardial infarction; J44.9 Chronic obstructive pulmonary disease, unspecified; G89.29 Other chronic pain; M54.2 Cervicalgia; M54.9 Dorsalgia, unspecified; Z86.14 Personal history of Methicillin resistant Staphylococcus aureus infection; I25.10 Atherosclerotic heart disease of native coronary artery without angina pectoris; E86.0 Dehydration; E79.0 Hyperuricemia without signs of inflammatory arthritis and tophaceous disease; R16.0 Hepatomegaly, not elsewhere classified; F17.200 Nicotine dependence, unspecified, uncomplicated; Z79.84 Long term (current) use of oral hypoglycemic drugs; Z79.82 Long term (current) use of aspirin; Z79.899 Other long term (current) drug therapy; Z95.5 Presence of coronary angioplasty implant and graft; Z86.73 Personal history of transient ischemic attack (TIA), and cerebral infarction without residual deficits; Z88.5 Allergy status to narcotic agent; Z82.49 Family history of ischemic heart disease and other diseases of the circulatory system; Z83.3 Family history of diabetes mellitus; Z82.79 Family history of other congenital malformations, deformations and chromosomal abnormalities; Z82.69 Family history of other diseases of the musculoskeletal system and connective tissue